=== PATIENT | female | born 1955 | race Caucasian/White ===

== ENCOUNTER → 2017-04-25 | Outpatient (CLI) | payer BC ==
--- NOTE | 2017-04-26 06:50 | MM ---
Reason for exam: additional evaluation requested from prior study. Last mammogram was performed 8 years and 4 months ago. History: Family history of premenopausal breast cancer in 2 sisters, breast cancer in 2 aunts, and breast cancer in cousin. Benign US left guided mammotome of the left breast, October 29, 2007. Physical Findings: Nurse did not find any significant physical abnormalities on exam. MG 3D Diag Mammo W/Cad CODIE Bilateral CC and MLO view(s) were taken. Prior study comparison: December 15, 2008, bilateral diagnostic digital mammog. The breast tissue is heterogeneously dense. This may lower the sensitivity of mammography. Previous mammotome biopsy in the left breast. No significant new findings when compared with previous films. These results were verbally communicated with the patient and result sheet given to the patient on 04/25/17. ASSESSMENT: Benign, BI-RAD 2 RECOMMENDATION: Routine screening mammogram of both breasts in 1 year.
== END | disposition home or self-care (01) ==
LOC: RADMAMWWP 14:18
PROVIDERS: ATTEND Family Medicine
DX: R92.8 Other abnormal and inconclusive findings on diagnostic imaging of breast (principal)
CPT/HCPCS: G0204; G0279

== ENCOUNTER 2018-04-02 07:44 | Day surgery (SDC) | payer BC ==
[2018-03-29 12:58] VITALS: BMI 30.7
[~2018-04-02 07:44] MED LIST: LACTATED RINGERS 1,000 ML IV SCH; LIDOCAINE 1% 20 ML VIAL (10MG/ML) FOR IV START INTRADERMA PRN
[2018-04-02 08:17] VITALS: RESP 16; TEMP 98.5
[2018-04-02] MEDS ORDERED: PROPOFOL 10 MG/ML 20 ML VIAL IV ONE (08:56)
--- NOTE | 2018-04-02 09:00 | P.GSHP ---
History of Present Illness H&P Date: 04/02/18 Chief Complaint: Screening colonoscopy This a 62-year-old female referred from Dr. Ines gibbs. Patient safe for screening colonoscopy. She's never had a colonoscopy before. She denies any significant GI complaints. Past Medical History Past Medical History: Hyperlipidemia, Hypertension Additional Past Medical History / Comment(s): PAST HX GESTATIONAL DIABETES YEARS AGO History of Any Multi-Drug Resistant Organisms: None Reported Past Surgical History: Adenoidectomy, Breast Surgery, Tonsillectomy Additional Past Surgical History / Comment(s): LT BREAST LUMPECTOMY-BENIGN. SKIN MOLE REMOVED FROM ANUS AREA-BENIGN Past Anesthesia/Blood Transfusion Reactions: No Reported Reaction Smoking Status: Never smoker - Past Family History Sister(s) Family Medical History: Cancer Additional Family Medical History / Comment(s): 2 SISTER'S WITH BREAST CANCER Medications and Allergies Home Medications Medication Instructions Recorded Confirmed Type Atorvastatin Calcium [Lipitor] 20 mg PO HS 03/29/18 04/02/18 History Ergocalciferol (Vitamin D2) 50,000 unit PO FR 03/29/18 04/02/18 History [Vitamin D2] Losartan/Hydrochlorothiazide 1 each PO DAILY 03/29/18 04/02/18 History [Losartan-Hctz 100-12.5 mg Tab] Allergies Allergy/AdvReac Type Severity Reaction Status Date / Time No Known Allergies Allergy Verified 04/02/18 08:07 Surgical - Exam Vital Signs Temp Pulse Resp BP Pulse Ox 98.5 F 100 16 152/83 98 04/02/18 08:16 04/02/18 08:16 04/02/18 08:16 04/02/18 08:16 04/02/18 08:16 - General well developed, no distress - Eyes PERRL - ENT normal pinna - Neck no masses - Respiratory normal expansion - Cardiovascular Rhythm: regular - Abdomen Abdomen: soft, non tender Assessment and Plan Assessment: We'll perform screening colonoscopy
--- NOTE | 2018-04-02 09:14 | P.OP ---
Date of Procedure: 04/02/18 Preoperative Diagnosis: Screening colonoscopy Postoperative Diagnosis: External hemorrhoids Diverticulosis Procedure(s) Performed: Colonoscopy Anesthesia: MAC Surgeon: Cristian Quevedo Pathology: none sent Condition: stable Disposition: PACU Description of Procedure: The patient's placed on the endoscopy table in the lateral position. She received IV sedation. Digital rectal exam was performed which revealed external hemorrhoids. Flexible colonoscope was then placed patient anus and passed throughout the entire colon. The ileocecal valve was visualized. The cecum, ascending and transverse colon appeared normal. In the descending and sigmoid colon there appeared to be diverticular changes. There is known to diverticulitis. The scope was then brought back the rectum and this appeared normal. Scope was withdrawn for patient.
[2018-04-02 09:33] VITALS: BP 128/70; PULSE 81
== END 2018-04-02 09:45 | disposition home or self-care (01) ==
LOC: ORWHC2ENDO 07:44
PROVIDERS: ATTEND Surgery
DX: Z12.11 Encounter for screening for malignant neoplasm of colon (principal); K57.30 Diverticulosis of large intestine without perforation or abscess without bleeding; K64.4 Residual hemorrhoidal skin tags; E78.5 Hyperlipidemia, unspecified; I10 Essential (primary) hypertension; Z80.3 Family history of malignant neoplasm of breast; Z79.899 Other long term (current) drug therapy
CPT/HCPCS: J2704; G0121

== ENCOUNTER → 2022-04-27 | Outpatient (CLI) | payer BC ==
--- NOTE | 2022-04-28 12:06 | MM ---
Reason for Exam: Screening (asymptomatic). Last mammogram was performed 5 year(s) and 1 month(s) ago. Patient History: Menarche at age 14. First Full-Term at age 23. Postmenopausal. 10/29/2007, Benign Core Biopsy on the left side. Maternal cousin had breast cancer. Maternal aunt had breast cancer. Maternal aunt had breast cancer. Sister had breast cancer. Sister had breast cancer. Risk Values: Graciela 5 year model risk: 7.9%. NCI Lifetime model risk: 26.7%. Prior Study Comparison: 09/07/2007 Bilateral Screening Mammogram, [facility]. 12/15/2008 Bilateral Diagnostic Mammogram, [facility]. 04/25/2017 Bilateral Diagnostic Mammogram, [facility]. Tissue Density: The breast tissue is heterogeneously dense. This may lower the sensitivity of mammography. Findings: Analyzed By CAD. Mammotome biopsy clip left breast redemonstrated. Occasional scattered benign appearing punctate calcification bilaterally redemonstrated. There is no suspicious group of microcalcifications or new suspicious mass in either breast. Overall Assessment: Benign, BI-RAD 2 Management: Screening Mammogram of both breasts in 1 year. A clinical breast exam by your physician is recommended on an annual basis and results should be correlated with mammographic findings. Electronically signed and approved by: Michael Hamilton M.D.
== END | disposition home or self-care (01) ==
LOC: RADMAMWWP 08:38
PROVIDERS: ATTEND Obstetrics & Gynecology Obstetrics
DX: Z12.31 Encounter for screening mammogram for malignant neoplasm of breast (principal); Z78.0 Asymptomatic menopausal state; Z80.3 Family history of malignant neoplasm of breast
CPT/HCPCS: 77063; 77067

== ENCOUNTER → 2023-04-28 | Outpatient (CLI) | payer BC ==
--- NOTE | 2023-05-01 09:57 | MM ---
Reason for Exam: Screening (asymptomatic). Last screening mammogram was performed 12 month(s) ago. Patient History: Menarche at age 14. First Full-Term at age 23. Postmenopausal. Patient has history of breast feeding. 10/29/2007, Benign Core Biopsy on the left side. Maternal cousin had breast cancer. Maternal aunt had breast cancer. Maternal aunt had breast cancer. Sister had breast cancer. Sister had breast cancer. Risk Values: Graciela 5 year model risk: 8.0%. NCI Lifetime model risk: 25.9%. Prior Study Comparison: 12/15/2008 Bilateral Diagnostic Mammogram, [facility]. 04/25/2017 Bilateral Diagnostic Mammogram, [facility]. 04/27/2022 Bilateral MG 3D screening mammo w/cad, [facility]. Tissue Density: The breast tissue is heterogeneously dense. This may lower the sensitivity of mammography. Findings: Analyzed By CAD. There is no suspicious group of microcalcifications or new suspicious mass in either breast. Previous mammotome biopsy in the left breast. Overall Assessment: Benign, BI-RAD 2 Management: Screening Mammogram of both breasts in 1 year. A clinical breast exam by your physician is recommended on an annual basis and results should be correlated with mammographic findings. Electronically signed and approved by: Donavon Briscoe D.O.
== END | disposition home or self-care (01) ==
LOC: RADMAMWWP 13:54
PROVIDERS: ATTEND Family Medicine
DX: Z12.31 Encounter for screening mammogram for malignant neoplasm of breast (principal); Z78.0 Asymptomatic menopausal state; Z80.3 Family history of malignant neoplasm of breast
CPT/HCPCS: 77063; 77067